=== PATIENT | male | born 1990 | race Caucasian/White ===

== ENCOUNTER 2018-01-21 03:34 | Emergency (ER) | payer OTHER ==
[2018-01-21 03:35] VITALS: BMI 24.3
[2018-01-21 03:47] VITALS: RESP 20
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
[2018-01-21] MEDS ORDERED: Tetanus/Diphtheria Toxoids 0.5 ml Syringe IM ONE ×2 (04:18→04:53)
[2018-01-21 06:22] VITALS: BP 130/80; PULSE 82; TEMP 98; O2SAT 97
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
== END 2018-01-21 06:20 | disposition home or self-care (01) ==
LOC: C.ER 03:34
DX: S80.212A Abrasion, left knee, initial encounter (principal); S80.211A Abrasion, right knee, initial encounter; S60.416A Abrasion of right little finger, initial encounter; V18.0XXA Pedal cycle driver injured in noncollision transport accident in nontraffic accident, initial encounter; Y93.55 Activity, bike riding

== ENCOUNTER 2018-04-11 00:03 | Emergency (ER) | payer OTHER ==
[2018-04-11 00:04] VITALS: BMI 24.3
[2018-04-11 00:25] VITALS: BP 124/76; PULSE 90; TEMP 98; O2SAT 95
[2018-04-11] MEDS ORDERED: Albuterol 0.083% Inhal Sol (2.5 mg/3 mL) UD ONE (00:47)
[2018-04-11] MEDS: Albuterol 0.083% Inhal Sol (2.5 mg/3 mL) UD INH SCH (00:49)
--- NOTE | 2018-04-11 00:53 | C.PDOC ---
History Of Present Illness 27 year old male presents to the ED c/o cold like symptoms and cough for the past few days. Patient has PMHx of asthma and has not been using his inhaler. Patient denies fever, chills, nausea, vomit, rash, CP, SOB, recent travel, sick contacts. Time Seen by Provider: 04/11/18 00:30 Chief Complaint (Nursing): Cough, Cold, Congestion History Per: Patient History/Exam Limitations: no limitations Onset/Duration Of Symptoms: Days Current Symptoms Are (Timing): Still Present Location Of Pain: Sinus/es Sick Contacts (Context): None Associated Symptoms: Cough, Sinus Drainage, Nasal Congestion Ear Symptoms: Bilateral: None Recent travel outside of the [place]: No Additional History Per: Patient Past Medical History Reviewed: Historical Data, Nursing Documentation, Vital Signs Vital Signs: Last Vital Signs Temp 98.0 F 04/11/18 00:22 Pulse 90 04/11/18 00:22 Resp 18 04/11/18 00:22 BP 124/76 04/11/18 00:22 Pulse Ox 95 04/11/18 00:22 - Medical History PMH: No Chronic Diseases Denies: Chronic Kidney Disease Surgical History: No Surg Hx - [facility] Procedures COLLECTION OF CSF FROM INDWELL DEV IN NERVOUS SYS (09/20/15) DRAINAGE OF CEREBRAL VENTRICLE WITH DRAIN DEV, PERC APPROACH (09/20/15) EXTIRPATION OF MATTER FROM RIGHT MAIN BRONCHUS, ENDO (09/20/15) INJECT/INFUSE NEC (03/05/15) INSERTION OF ENDOTRACHEAL AIRWAY INTO TRACHEA, VIA OPENING (09/20/15) RESPIRATORY VENTILATION, 24-96 CONSECUTIVE HOURS (09/20/15) Family History: States: Unknown Family Hx - Social History Hx Tobacco Use: Yes Hx Alcohol Use: No Hx Substance Use: Yes - Immunization History Hx Tetanus Toxoid Vaccination: No Hx Influenza Vaccination: Yes Hx Pneumococcal Vaccination: No Review Of Systems Constitutional: Negative for: Fever, Chills ENT: Positive for: Nose Congestion. Negative for: Throat Pain, Throat Swelling Cardiovascular: Negative for: Chest Pain Respiratory: Positive for: Cough. Negative for: Shortness of Breath, Sputum Gastrointestinal: Negative for: Nausea, Vomiting Skin: Negative for: Rash Neurological: Negative for: Weakness, Numbness Physical Exam - Physical Exam Appears: Non-toxic, No Acute Distress Skin: Normal Color, Warm, Dry Head: Atraumatic, Normacephalic Eye(s): bilateral: Normal Inspection Throat: Normal Chest: Symmetrical Cardiovascular: Rhythm Regular Respiratory: Normal Breath Sounds, No Rales, Rhonchi, Wheezing Extremity: Normal ROM, No Tenderness, No Swelling Neurological/Psych: Oriented x3, Normal Speech Gait: Steady ED Course And Treatment O2 Sat by Pulse Oximetry: 95 (ON RA) Pulse Ox Interpretation: Normal Progress Note: Plan: - Albuterol Nebulizer x 2. - Prednisone 60 mg PO. On reassessment, patient is resting comfortably with no wheezing, chest pain, or retractions. Oxygen saturation and breath sounds have improved. Patient is alert and oriented x 3. Patient was advised to follow up with physician/clinic in 1-2 days and return to ED if symptoms worsen or persist. Disposition Counseled Patient/Family Regarding: Diagnosis, Need For Followup - Disposition Referrals: [facility] at [facility] [Outside] Disposition: HOME/ ROUTINE Disposition Time: 00:52 Condition: STABLE Additional Instructions: Please follow up in clinic Take medications prescribed Drink plenty of fluids Return to ER if worse Prescriptions: Albuterol HFA [Ventolin HFA 90 mcg/actuation (8 g)] 2 puff IH [id number] #1 inhaler guaiFENesin/Dextromethorphan [Robitussin DM] 5 ml PO QID #100 ml predniSONE [Prednisone] 40 mg PO DAILY #8 tab Instructions: Upper Respiratory Infection (ED) Forms: [employer] (Maori) - Clinical Impression Clinical Impression: Upper respiratory infection, Asthma - PA / LADLE LINER / Resident Statement MD/DO has reviewed & agrees with the documentation as recorded. - Scribe Statement The provider has reviewed the documentation as recorded by the Scribe Ga Gutierrez All medical record entries made by the Scribe were at my direction and personally dictated by me. I have reviewed the chart and agree that the record accurately reflects my personal performance of the history, physical exam, medical decision making, and the department course for this patient. I have also personally directed, reviewed, and agree with the discharge instructions and disposition.
[2018-04-11 01:09] VITALS: RESP 20
== END 2018-04-11 01:05 | disposition home or self-care (01) ==
LOC: C.ER 00:03
DX: J45.909 Unspecified asthma, uncomplicated (principal); J06.9 Acute upper respiratory infection, unspecified; F17.210 Nicotine dependence, cigarettes, uncomplicated

== ENCOUNTER 2018-08-03 12:05 | Emergency (ER) | payer OTHER ==
[2018-08-03 12:05] VITALS: BMI 24.3
[2018-08-03 12:10] VITALS: TEMP 98.8
--- NOTE | 2018-08-03 12:15 | C.PDOC ---
History Of Present Illness 27 year old male presents to the ED with complaint of new-onset headache since 10:00am, gradually worsening. Headache is constant. He denies prior hx of frequent headaches. PMHx is significant for brain aneurysm s/p cerebral shunt pl acement in [facility] in 2009. Patient is also complaining of blurry vision when he looks straight. Of note, patient reports chronic strabismus s/p prior stroke in 2009, and also chronic decreased ability to write using his right hand. He denies any new change in speech, facial droop, or other new focal deficit. Records reviewed: Patient has hx of noncompliance with neurosurgery. He is also s/p SET UP OPERATOR TOOL shunt revision in 2016. + Hx of prior drug abuse. Time Seen by Provider: 08/03/18 12:12 Chief Complaint (Nursing): Headache History Per: Patient History/Exam Limitations: no limitations Onset/Duration Of Symptoms: Hrs (x2) Current Symptoms Are (Timing): Still Present Preceeding Symptoms: None Associated Symptoms: Blurred Vision Past Medical History Reviewed: Historical Data, Nursing Documentation, Vital Signs Vital Signs: Last Vital Signs Temp 98.8 F 08/03/18 12:06 Pulse 70 08/03/18 12:06 Resp 18 08/03/18 12:06 BP 155/81 H 08/03/18 12:06 Pulse Ox 98 08/03/18 12:06 - Medical History PMH: CVA, Seizures Denies: Diabetes, Hepatitis, HIV, HTN, Chronic Kidney Disease, Sexually Transmitted Disease Other PMH: brain aneurysm s/p shunt placement in 2009 Other Surgeries: SET UP OPERATOR TOOL shunt revision in 2016 - [facility] Procedures COLLECTION OF CSF FROM INDWELL DEV IN NERVOUS SYS (09/20/15) DRAINAGE OF CEREBRAL VENTRICLE WITH DRAIN DEV, PERC APPROACH (09/20/15) EXTIRPATION OF MATTER FROM RIGHT MAIN BRONCHUS, ENDO (09/20/15) INJECT/INFUSE NEC (03/05/15) INSERTION OF ENDOTRACHEAL AIRWAY INTO TRACHEA, VIA OPENING (09/20/15) RESPIRATORY VENTILATION, 24-96 CONSECUTIVE HOURS (09/20/15) Family History: States: Unknown Family Hx - Social History Hx Tobacco Use: Yes Hx Alcohol Use: No Hx Substance Use: Yes - Immunization History Hx Tetanus Toxoid Vaccination: No Hx Influenza Vaccination: Yes Hx Pneumococcal Vaccination: No Review Of Systems Constitutional: Negative for: Fever, Chills Eyes: Positive for: Vision Change (blurred vision when looking straight) Cardiovascular: Negative for: Chest Pain, Palpitations Respiratory: Negative for: Shortness of Breath Gastrointestinal: Negative for: Nausea, Vomiting, Diarrhea Skin: Negative for: Rash Neurological: Positive for: Weakness (decreased ability to write with right hand -- chronic), Headache. Negative for: Change in Speech, Confusion, Altered Mental Status Physical Exam - Physical Exam Appears: Non-toxic, No Acute Distress Skin: Warm, Dry, No Rash Head: Atraumatic, Normacephalic (w/ palpable shunt noted) Eye(s): right: Other (Right eye exotropia) Neck: Supple Chest: Symmetrical Cardiovascular: Rhythm Regular, No Murmur Respiratory: Normal Breath Sounds, No Accessory Muscle Use, Other (NARD) Gastrointestinal/Abdominal: Soft, No Tenderness, No Distention Extremity: Bilateral: Atraumatic, Normal Color And Temperature, Normal ROM (moves all extremities) Pulses: Left Radial: Normal, Right Radial: Normal Neurological/Psych: Oriented x3, Normal Speech, Other (see NIH scale) Other Neurological Findings: No Facial Palsy Extremity: Right: No Drift, Left: No Drift, Upper: No Drift, Lower: No Drift ED Course And Treatment - Laboratory Results Result Diagrams: 08/03/18 12:19 08/03/18 12:19 ECG: Interpreted By Nd ECG Rhythm: Sinus Rhythm ECG Interpretation: Normal Rate From EC O2 Sat by Pulse Oximetry: 98 (RA) Pulse Ox Interpretation: Normal - Radiology CXR: Interpreted by Nd CXR Interpretation: Yes: No Acute Disease - CT Scan/US CT Head Other Rad Studies (CT/US): Read By Radiologist, Radiology Report Reviewed CT/US Interpretation: Accession No. : [id number]. Patient Name / ID : RYLEE COTTER / [id number]. Exam Date : 08/03/2018 12:21:24 ( Approved ). Study Comment : Sex / Age : M / 27Y. Creator : Lorna Cunningham. Dictator : Rony Warner MD. Solo Musician : Associate Field Service Engineer : Rony Warner MD. Approver2 : Report Date : 08/03/2018 12:24:39. My Comment : . Date of service: 08/03/2018. PROCEDURE: CT HEAD WITHOUT CONTRAST. HISTORY: Code Stroke. COMPARISON: Noncontrast head CT 09/23/2015. TECHNIQUE: Axial computed tomography images were obtained through the head/brain without intravenous con trast. Radiation dose: Total exam DLP = 1169.2 mGy-cm. This CT exam was performed using one or more of the following dose reduction techniques: Automated exposure control, adjustment of the mA and/or kV according to patient size, and/or use of iterative reconstruction technique. FINDINGS: HEMORRHAGE: No acute subacute intracranial hemorrhage. Prior right frontal and bilateral lateral ventricle intraventricular hemorrhage has resolved in the interval. BRAIN: Dense artifact from prior coil placement as therapy for large arteriovascular malformation is reiterated obscuring the mid to lower cerebrum once again. Hyperdensity identifies significant residual arteriovascular malformation within and cephalad to the vermis, within or posterior to the mid and upper brainstem and with left frontal cortical venous drainage which may have increased in the interval. Additional drainage is apparently through left greater than right cavernous sinuses which are more prominent now than previou sly shown. Primary drainage may be via vein of Jarred and straight sinus, both of which appear engorged. Posterior portion of the AVM appears more prominent at the basilar cisterns, posterior segment of the upper mid brainstem and vermis. VENTRICLES: Prior right frontal ventricular shunt has been removed with left ventricular shunt again identified terminating likely in the body of the left lateral ventricle once again though there is a very low ventricular volume in either lateral ventricle in the interval. No hydrocephalus is appreciated at this time. CALVARIUM: Bifrontal raysa holes are reiterated. PARANASAL SINUSES: Unremarkable as visualized. No significant inflammatory changes. MASTOID AIR CELLS: Unremarkable as visualized. No inflammatory changes. OTHER FINDINGS: None. IMPRESSION: 1. No definitive cortical edema or or other definite acute intracranial finding noted at this time. Artifact from arteriovascular malformation coils obscures evaluation of mid cerebrum and upper brainstem and limited portion of the inferior cerebrum as well. 2. 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 The vein of Jarred and straight sinus are engorged potentially reflecting primary venous drainage of this AVM with increased density at the region of the vermis suggesting increase in volume of the posterior portion of the AVM. Findings discussed with JAY Glaser with written down and read back verification 08/03/2018 12:35 p.m. CTA Head/Neck Other Rad Studies (CT/US): Read By Radiologist, Radiology Report Reviewed CT/US Interpretation: Accession No. : [id number]. Patient Name / ID : RYLEE COTTER / [id number]. Exam Date : 08/03/2018 12:24:42 ( Approved ). Study Comment : Sex / Age : M / 27Y. Creator : Lorna Cunningham. Dictator : Rony Warner MD. Solo Musician : Associate Field Service Engineer : Rony Warner MD. Approver2 : Report Date : 08/03/2018 12:39:48. My Comment : . Date of service: 08/03/2018. PROCEDURE: CT Angiography of the Brain. HISTORY: code stroke. COMPARISON: None available. TECHNIQUE: CT angiography of the head and neck was performed following intravenous contrast administration. Coronal and sagittal maximum intensity projection reformatted images were generated. Contrast Dose: Omnipaque 350, 100 cc. Radiation dose: Total exam DLP = 702.75 mGy-cm. This CT exam was performed using one or more of the following dose reduction techniques: Automated exposure control, adjustment of the mA and/or kV according to patient size, and/or use of iterative r econstruction technique. FINDINGS: The intracranial portion of the examination is complicated by a very large arteriovascular malformation at the vermis and posterior brainstem with primary venous drainage appearing to be via the vein of Jarred and straight sinus but also via left greater than right cavernous sinuses and left temporal cortical venous drainage. Some cortical venous drainage is ap preciate the right temporal lobe periphery as well. Artifact from prior AVM coiling is appreciated at the anterior superior margins of the AVM. INTERNAL CEREBRAL ARTERIES: Unremarkable. The skull base, petrous, cavernous and supraclinoid segments are bilaterally widely patent. ANTERIOR CEREBRAL ARTERIES: Unremarkable. A1 and A2 segments are widely patent. Smaller distal branches unremarkable, as visualized. MIDDLE CEREBRAL ARTERIES: Unremarkable. M1 and M2 segments are widely patent. Perisylvian branches grossly symmetric. POSTERIOR CIRCULATION: The basilar and bilateral vertebral arteries are widely patent and appear relatively prominent which may indicate potential primary source of input for AVM. There caliber is larger than the A1 anterior and M1 middle cerebral artery branches bilaterally. The bilateral P1 posterior arteries appear widely patent and upper limits normal volume as well. Posterior Inferior Cerebellar Arteries: Unremarkable. Right posterior communicating artery appears quite prominent with hypoplastic left posterior communicating artery evident. A 3.0 x 3.5 mm aneurysm is questioned extending medial and posterior off the right PCOM artery. Normal appearing anterior communicating artery. NECK CTA: Common Carotid arteries: The bilateral common carotid appear widely patent from their origins to their bifurcations with no significant stenosis appreciated. No evidence to suggest common carotid artery dissection. Internal Carotid arteries: No significant stenosis is appreciated throughout the cervical internal carotid artery segments bilaterally and there is no evidence of dissection either. External Carotid arteries: Appear unremarkable ricardo aterally. Vertebral arteries: The bilateral vertebral arteries are patent with left greater than right vertebral artery prominence noted, though not grossly large in size. No CT evidence to suggest dissection bilaterally. ANEURYSM/ VASCULAR MALFORMATIONS: Please see discussion above. Both of these types of vascular abnormalities are described above. OTHER FINDINGS: None. IMPRESSION: 1. 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 AVM is more prominent in the interval with prominent vein of Jarred/straight sinus venous drainage and left frontal cortical venous drainage. Limited right temporal cortical venous drainage identified. 2. 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 3. No definite occlusion or even significant stenosis identified within main intracranial arteries, however, bilateral vertebral arteries appears relatively prominent as well as right posterior communicating artery, likely related to arteriovascular malformation. 4. Widely patent bilateral common and internal carotid arteries at the neck and skull base. NIHSS Stroke Scale - Date/Time Evaluation Performed Date Performed: 08/03/18 Time Performed: 12:14 When Was NIHSS Performed: Baseline - How Severe is the Stoke Level of Consciousness: 0=Alert LOC to Questions: 0=Both comments correct LOC to commands: 0=Obeys both correctly Best Gaze: 2=Forced deviation (CHRONIC) Visual: 0=No visual loss Facial: 0=Normal Motor Arm - Left: 0=No drift Motor Arm - Right: 0=No drift Motor Leg - Left: 0=No drift Motor Leg - Right: 0=No drift Limb Ataxia: 0=Absent Sensory: 0=Normal Best Language: 0=No aphasia Dysarthia: 0=Normal articulation Extinction & Inattention (Neglect): 0=Normal, no object Score: 2 Progress - Re-Evaluation Re-evaluation Note: 08/03/18 13:10 ADMINISTERED IV REGLAN, TORADOL, MAG SULFATE FOR PAIN CONTROL 08/03/18 13:41 D/W DR COBB NEURO SHELTER CASE MANAGER AWARE OF ER FINDINGS. RECOMMENDS ADDL DEPAKOTE, DEX AND FU NEUROSURG @ [facility]. - Data Reviewed Data Reviewed: Lab, Diagnostic imaging, EKG, Old records rTPA Inclusion/Exclusion - Inclusion Criteria for Altepase Patient is 18 years or Older: Yes The Clinical Diagnosis of Ischemic Stroke That is Causing a Potentially Disabling Neurological Deficit: Yes Time of Onset is Well Established to be Less Than 270 Minute Before Treatment Would Begin: Yes Risk/Benefit Discussed With Patient/Family Member Present: Yes - Exclusion Criteria for Altepase Uncontrolled Hypertension at Time of Treatment (Systolic BP above 185 or Diastolic BP above 110 mmHg): Yes History of: Intracranial hemorrhage, Brain Aneurysm Active Internal Bleeding: No Known Bleeding Diathesis Including but Not Limited to: Platelets Below 100,000/mm,PTT Above 40 sec After Heparin Use, Current Use of Oral Anitcoagulant With INR Greater Than 1.7 or PT Greater Than 15 secs: No Evidence of an Intracranial Hemorrhage: No Evidence of Major Acute Infarct With Signs Greater Than 1/3 MCA Territory: No Suspicion of Subarachnoid Hemorrhage on Pretreatment Evaluation Even if CT Head Negative For Hemorrhage: No - Warning to TPA With Conditions Following Conditions Weighed Against Anticipated Benefit: Yes Condition: Stroke Serevity Too Mild Medical Decision Making Medical Decision Making: Code Stroke initiated at 12:14. Initial Plan: --CMP, CBC, drug screen, cardiac enzymes, coags --EKG --Chest x-ray --CT Head --CTA Head/Neck 12:35 Received call from radiologist Dr. Maher, no acute findings on CT. Still pending CTA. 13:30 CTA read, shows no definite occlusion. Disposition Counseled Patient/Family Regarding: Studies Performed, Diagnosis, Need For Followup - Disposition Referrals: YOUR,NEUROSURGEON [Other] Disposition: HOME/ ROUTINE Disposition Time: 14:14 Condition: IMPROVED Instructions: Headache, Adult (DC) Forms: [employer] (Urdu) - Clinical Impression Clinical Impression: Headache - Scribe Statement The provider has reviewed the documentation as recorded by the Reynaldo Mahmood Provider Attestation: All medical record entries made by the Reynaldo were at my direction and personally dictated by me. I have reviewed the chart and agree that the record accurately reflects my personal performance of the history, physical exam, medical decision making, and the department course for this patient. I have also personally directed, reviewed, and agree with the discharge instructions and disposition.
[2018-08-03] MEDS ORDERED: Iohexol 350mg/ml 100 ML ONE (12:18)
[2018-08-03 12:26] LABS: BASO # 0.1 K/uL (0.0-0.2); BASO % 1.2 % (0.0-2.0); EOS # 0.1 K/uL (0.0-0.7); EOS % 1.7 % (0.0-4.0); LYMPH # 1.5 K/uL (1.0-4.3); LYMPH % 31.6 % (20.0-40.0); MEAN CORPUSCULAR HGB CONC 33.4 g/dL (33.0-37.0); MEAN PLATELET VOLUME 8.3 fL (7.2-11.7); MONO # 0.4 K/uL (0.0-0.8); NEUT # 2.6 K/uL (1.8-7.0); NEUT % 56.5 % (50.0-75.0); NRBC % 0.1 % (0.0-2.0); RBC 5.66 Mil/uL (4.40-5.90); RED CELL DISTRIBUTION WIDTH 13.8 % (11.5-14.5)
[2018-08-03 12:27] LABS: HEMOGLOBIN 15.8 g/dL (12.0-18.0); MEAN CELL VOLUME 83.9 fL (80.0-94.0); WHITE BLOOD COUNT 4.6 K/uL (4.8-10.8)
[2018-08-03 12:34] LABS: INR 1.2; PROTHROMBIN TIME 12.9 SECONDS (9.7-12.2)
[2018-08-03 12:40] LABS: ALB/GLOB RATIO 1.7 (1.0-2.1); ALBUMIN 4.7 g/dL (3.5-5.0); ALT/SGPT 26 U/L (21-72); AST/SGOT 25 U/L (17-59); BLOOD UREA NITROGEN 23 mg/dL (9-20); CALCIUM 9.3 mg/dl (8.6-10.4); GFR NON-AFRICAN AMERICAN > 60; HDL CHOLESTEROL 39 mg/dL (30-70)
[2018-08-03 12:50] LABS: LDL CHOLESTEROL 63 mg/dL (0-129)
--- NOTE | 2018-08-03 12:53 | CT ---
Date of service: 08/03/2018 PROCEDURE: CT HEAD WITHOUT CONTRAST. HISTORY: Code Stroke COMPARISON: Noncontrast head CT 09/23/2015. TECHNIQUE: Axial computed tomography images were obtained through the head/brain without intravenous contrast. Radiation dose: Total exam DLP = 1169.2 mGy-cm. This CT exam was performed using one or more of the following dose reduction techniques: Automated exposure control, adjustment of the mA and/or kV according to patient size, and/or use of iterative reconstruction technique. FINDINGS: HEMORRHAGE: No acute subacute intracranial hemorrhage. Prior right frontal and bilateral lateral ventricle intraventricular hemorrhage has resolved in the interval. BRAIN: Dense artifact from prior coil placement as therapy for large arteriovascular malformation is reiterated obscuring the mid to lower cerebrum once again. Hyperdensity identifies significant residual arteriovascular malformation within and cephalad to the vermis, within or posterior to the mid and upper brainstem and with left frontal cortical venous drainage which may have increased in the interval. Additional drainage is apparently through left greater than right cavernous sinuses which are more prominent now than previously shown. Primary drainage may be via vein of Jarred and straight sinus, both of which appear engorged. Posterior portion of the AVM appears more prominent at the basilar cisterns, posterior segment of the upper mid brainstem and vermis. VENTRICLES: Prior right frontal ventricular shunt has been removed with left ventricular shunt again identified terminating likely in the body of the left lateral ventricle once again though there is a very low ventricular volume in either lateral ventricle in the interval. No hydrocephalus is appreciated at this time. CALVARIUM: Bifrontal raysa holes are reiterated. PARANASAL SINUSES: Unremarkable as visualized. No significant inflammatory changes. MASTOID AIR CELLS: Unremarkable as visualized. No inflammatory changes. OTHER FINDINGS: None. IMPRESSION: 1. No definitive cortical edema or or other definite acute intracranial finding noted at this time. Artifact from arteriovascular malformation coils obscures evaluation of mid cerebrum and upper brainstem and limited portion of the inferior cerebrum as well. 2. 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 The vein of Jarred and straight sinus are engorged potentially reflecting primary venous drainage of this AVM with increased density at the region of the vermis suggesting increase in volume of the posterior portion of the AVM. Findings discussed with PA Rusko with written down and read back verification 08/03/2018 12:35 p.m..
[2018-08-03] MEDS ORDERED: Magnesium Sulfate 1 gm in D5W 1 GM/100 ML BAG IVPB STA (13:09)
--- NOTE | 2018-08-03 13:26 | CT ---
Date of service: 08/03/2018 PROCEDURE: CT Angiography of the Brain. HISTORY: code stroke COMPARISON: None available. TECHNIQUE: CT angiography of the head and neck was performed following intravenous contrast administration. Coronal and sagittal maximum intensity projection reformatted images were generated. Contrast Dose: Omnipaque 350, 100 cc Radiation dose: Total exam DLP = 702.75 mGy-cm. This CT exam was performed using one or more of the following dose reduction techniques: Automated exposure control, adjustment of the mA and/or kV according to patient size, and/or use of iterative reconstruction technique. FINDINGS: The intracranial portion of the examination is complicated by a very large arteriovascular malformation at the vermis and posterior brainstem with primary venous drainage appearing to be via the vein of Jarred and straight sinus but also via left greater than right cavernous sinuses and left temporal cortical venous drainage. Some cortical venous drainage is appreciate the right temporal lobe periphery as well. Artifact from prior AVM coiling is appreciated at the anterior superior margins of the AVM. INTERNAL CEREBRAL ARTERIES: Unremarkable. The skull base, petrous, cavernous and supraclinoid segments are bilaterally widely patent. ANTERIOR CEREBRAL ARTERIES: Unremarkable. A1 and A2 segments are widely patent. Smaller distal branches unremarkable, as visualized. MIDDLE CEREBRAL ARTERIES: Unremarkable. M1 and M2 segments are widely patent. Perisylvian branches grossly symmetric. POSTERIOR CIRCULATION: The basilar and bilateral vertebral arteries are widely patent and appear relatively prominent which may indicate potential primary source of input for AVM. There caliber is larger than the A1 anterior and M1 middle cerebral artery branches bilaterally. The bilateral P1 posterior arteries appear widely patent and upper limits normal volume as well. Posterior Inferior Cerebellar Arteries: Unremarkable. Right posterior communicating artery appears quite prominent with hypoplastic left posterior communicating artery evident. A 3.0 x 3.5 mm aneurysm is questioned extending medial and posterior off the right PCOM artery. Normal appearing anterior communicating artery. NECK CTA: Common Carotid arteries: The bilateral common carotid appear widely patent from their origins to their bifurcations with no significant stenosis appreciated. No evidence to suggest common carotid artery dissection. Internal Carotid arteries: No significant stenosis is appreciated throughout the cervical internal carotid artery segments bilaterally and there is no evidence of dissection either. External Carotid arteries: Appear unremarkable bilaterally. Vertebral arteries: The bilateral vertebral arteries are patent with left greater than right vertebral artery prominence noted, though not grossly large in size. No CT evidence to suggest dissection bilaterally. ANEURYSM/ VASCULAR MALFORMATIONS: Please see discussion above. Both of these types of vascular abnormalities are described above. OTHER FINDINGS: None. IMPRESSION: 1. 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 AVM is more prominent in the interval with prominent vein of Jarred/straight sinus venous drainage and left frontal cortical venous drainage. Limited right temporal cortical venous drainage identified. 2. 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 3. No definite occlusion or even significant stenosis identified within main intracranial arteries, however, bilateral vertebral arteries appears relatively prominent as well as right posterior communicating artery, likely related to arteriovascular malformation. 4. Widely patent bilateral common and internal carotid arteries at the neck and skull base.
[2018-08-03] MEDS ORDERED: Dexamethasone 4 mg/1 ml IVP STA (13:40)
[2018-08-03] MEDS ORDERED: Magnesium Sulfate 1 gm in D5W 1 GM/100 ML BAG IVPB ONE (13:44)
--- NOTE | 2018-08-03 13:54 | RAD ---
Date of service: 08/03/2018 HISTORY: Code Stroke COMPARISON: 09/24/2015 FINDINGS: LUNGS: No active pulmonary disease. PLEURA: No significant pleural effusion identified, no pneumothorax apparent. CARDIOVASCULAR: No aortic atherosclerotic calcification present. Normal cardiac size. No congestive change. Suspect ventriculoperitoneal shunt catheter traversing the left hemithorax. ET tube and NG tube seen on prior examination are no longer present. OSSEOUS STRUCTURES: No significant abnormalities. VISUALIZED UPPER ABDOMEN: Normal. OTHER FINDINGS: None. IMPRESSION: No active disease.
[2018-08-03] MEDS ORDERED: Dexamethasone 4 mg/1 ml ONE (14:39)
--- NOTE | 2018-08-03 15:02 | CP.PCM.CON ---
History of Present Illness - History of Present Illness History of Present Illness: PGY-1 Neurology Code Stroke Consult for Dr. Nieto Patient is a 27 year old male with PMHx of AVM and hydrocephalus s/p [employer] shunt placement in 2009 with emergency revision in 2014 who presented to ED complaining of new left-sided headache. Patient has a variety of neurological symptoms which are residual sequelae of his neurovascular history, including reported right-sided weakness and blurry vision (patient has strabismus). The only new complaint that patient comes in with today is left-frontal headache in the area of where the [employer] shunt is placed. Patient reports he had not followed up with his Neurosurgeon, Dr. Swartz, in four years (initial [employer] placed by Dr. Swartz, revision was with Dr. Benavidez). He denies any recent international travel, sick contacts, any history of hypercoagulability. PMHx: AVM and hydrocephalus s/p [employer] shunt placement in 2009 with emergency revision in 2014 [place]iges: NKA Surgeries: SU[employer] shunt placement in 2009, emergency revision in 2014 (requiring ventriculostomy, now reversed) Social history: Occasional alcohol, denies tobacco use, admits to frequent use of marijuana Medications: No home meds Review of Systems - Constitutional Constitutional: absent: Fatigue, Fever - EENT Eyes: Blurred Vision. absent: Change in Vision Additional comments: Blurry vision but not double vision - Cardiovascular Cardiovascular: absent: Chest Pain, Dyspnea - Respiratory Respiratory: absent: Wheezing, Stridor - Gastrointestinal Gastrointestinal: absent: Abdominal Pain, Constipation, Diarrhea, Nausea, Vomiting - Genitourinary Genitourinary: absent: Dysuria, Flank Pain - Neurological Neurological: Abnormal Speech (slurred speech (residual from prior events)), Num bness (left-sided numbness (residual from prior events)), Focal Weakness (Reports right-sided weakness (residual from prior events)), Headaches (New left-frontal headache - was 9/10 --> 6/10), Sensory Deficit (reports decreased sensation on left side (residual from prior events)), Weakness (Reports right- sided weakness (residual from prior events)). absent: Abnormal Hearing, Behavioral Changes, Convulsions, Dizziness, Loss of Vision, Memory Loss, Paresthesias, Radicular Pain, Syncope - Psychiatric Psychiatric: absent: Anxiety, Depression (does report distress over multiple surgeries and sequelae) - Hematologic/Lymphatic Hematologic: absent: Easy Bleeding, Easy Bruising Past Patient History - Infectious Disease Hx of Infectious Diseases: None - Tetanus Immunizations Tetanus Immunization: Unknown - Past Medical History & Family History Past Medical History?: Yes - Past Social History Smoking Status: Light Smoker < 10 Cigarettes Daily - CARDIAC Hx Hypertension: No - PULMONARY Hx Tuberculosis: No - NEUROLOGICAL Hx Seizures: Yes - HEENT Hx HEENT Problems: No - RENAL Hx Chronic Kidney Disease: No - ENDOCRINE/METABOLIC Hx Endocrine Disorders: No - HEMATOLOGICAL/ONCOLOGICAL Hx Human Immunodeficiency Virus (HIV): No - INTEGUMENTARY Hx Dermatological Problems: No - MUSCULOSKELETAL/RHEUMATOLOGICAL Hx Musculoskeletal Disorders: No - GASTROINTESTINAL Hx Gastrointestinal Disorders: No - GENITOURINARY/GYNECOLOGICAL Hx Sexually Transmitted Disorders: No - PSYCHIATRIC Hx Substance Use: Yes - SURGICAL HISTORY Hx Surgeries: Yes ([employer] Shunt) Other/Comment: Shunt. Brain annurysm - ANESTHESIA Hx Anesthesia: Yes Hx Anesthesia Reactions: No Meds Allergies/Adverse Reactions: Allergies Allergy/AdvReac Type Severity Reaction Status Date / Time No Known Allergies Allergy Verified 04/11/18 00:25 Physical Exam - Constitutional Appears: Non-toxic, No Acute Distress - Head Exam Head Exam: ATRAUMATIC, NORMOCEPHALIC - Eye Exam Eye Exam: EOMI, PERRL - ENT Exam ENT Exam: Mucous Membranes Moist - Respiratory Exam Respiratory Exam: Clear to Auscultation Bilateral. absent: Rhonchi, Wheezes - Cardiovascular Exam Cardiovascular Exam: REGULAR RHYTHM, +S1, +S2 Additional comments: Protruding clavicles 2/2 prior trauma - GI/Abdominal Exam GI & Abdominal Exam: Normal Bowel Sounds, Soft. absent: Tenderness - Extremities Exam Extremities exam: Negative for: pedal edema, tenderness - Neurological Exam Neurological exam: Alert, CN II-XII Intact, Oriented x3 - Expanded Neurological Exam Expanded Speech: Garbled Speech Cranial nerves: EOM's Intact: Normal, Facial Palsey w/Forehead Movement: Normal, Facial Palsey w/o Forehead Movement: Normal, Facial Sensation: Normal, Gag Reflex: Normal, Nystagmus: Normal, Tongue Deviation: Normal Cerebellar Function: Finger to Nose: Abnormal Left, Abnormal Right Upper motor neuron: Babinski Sign: Normal, Pronator Drift: Normal Sensory exam: Lower Extremity Light Touch: Abnormal Left, Upper Extremity Light Touch: Abnormal Left Neuro motor strength exam: Left Upper Extremity: 5, Right Upper Extremity: 5 (exam inconsistent w/ ROS - patient claims r-side weakness), Left Lower Extremity: 5, Right Lower Extremity: 5 DTR: Bicep Left: 2+, Bicep Right: 2+, Brachioradialis Left: 3+, Brachioradialis Right: 2+, Patellar Left: 3+, Patellar Right: 2+ - Psychiatric Exam Psychiatric exam: Normal Affect, Normal Mood - Skin Skin Exam: Dry, Intact Results - Vital Signs Recent Vital Signs: Last Vital Signs Temp 98.8 F 08/03/18 12:06 Pulse 70 08/03/18 12:06 Resp 18 08/03/18 12:06 BP 155/81 H 08/03/18 12:06 Pulse Ox 98 08/03/18 14:14 - Labs Result Diagrams: 08/03/18 12:19 08/03/18 12:19 Labs: Laboratory Results - last 24 hr 08/03/18 08/03/18 08/03/18 12:09 12:19 12:19 WBC 4.6 L D RBC 5.66 Hgb 15.8 D Hct 47.5 MCV 83.9 D MCH 28.0 MCHC 33.4 RDW 13.8 Plt Count 248 MPV 8.3 Neut % (Auto) 56.5 Lymph % (Auto) 31.6 [place] % (Auto) 9.0 Eos % (Auto) 1.7 Baso % (Auto) 1.2 Neut # (Auto) 2.6 Lymph # (Auto) 1.5 [place] # (Auto) 0.4 Eos # (Auto) 0.1 Baso # (Auto) 0.1 PT 12.9 H INR 1.2 APTT 32 Sodium Potassium Chloride Carbon Dioxide Anion Gap BUN Creatinine Est GFR ( Amer) Est GFR (Non-Af Amer) POC Glucose (mg/dL) 120 H Random Glucose Hemoglobin A1c Calcium Total Bilirubin AST ALT Alkaline Phosphatase Troponin I Total Protein Albumin Globulin Albumin/Globulin Ratio Triglycerides Cholesterol LDL Cholesterol Direct HDL Cholesterol Alcohol, Quantitative Blood Type Antibody Screen 08/03/18 08/03/18 08/03/18 12:19 12:19 12:19 WBC RBC Hgb Hct MCV MCH MCHC RDW Plt Count MPV Neut % (Auto) Lymph % (Auto) [place] % (Auto) Eos % (Auto) Baso % (Auto) Neut # (Auto) Lymph # (Auto) [place] # (Auto) Eos # (Auto) Baso # (Auto) PT INR APTT Sodium 139 Potassium 3.8 Chloride 105 Carbon Dioxide 27 Anion Gap 11 BUN 23 H Creatinine 0.9 Est GFR ( Amer) > 60 Est GFR (Non-Af Amer) > 60 POC Glucose (mg/dL) Random Glucose 100 Hemoglobin A1c 5.2 Calcium 9.3 Total Bilirubin 0.9 AST 25 ALT 26 Alkaline Phosphatase 63 Troponin I < 0.0120 Total Protein 7.4 Albumin 4.7 Globulin 2.7 Albumin/Globulin Ratio 1.7 Triglycerides 100 Cholesterol 107 LDL Cholesterol Direct 63 HDL Cholesterol 39 Alcohol, Quantitative < 10 Blood Type A POSITIVE Antibody Screen Negative Assessment & Plan - Assessment and Plan (Free Text) Assessment: PMHx of AVM and hydrocephalus s/p [employer] shunt placement in 2009 with emergency revision in 2014 who presented to ED complaining of new left-sided headache and CT head showing interval increase in size of AVM Plan: Known AVM with new-onset headache likely 2/2 AVM growth Meds -Decadron 8 mg IV stat given in ED -Mag sulf 1 gm IV stat given in ED -Depakote 500 mg IVPB stat given in ED -Toradol also given stat in ED -No acute intervention required at this time, however patient needs to follow up with interventional neurosurgery due to increasing size of AVM with lack of prior follow up (no follow up in 4 years), either with Dr. Swartz, or with [facility]. Patient was instructed to do so, and is safe for discharge home from a neurology standpoint. Imaging -CT head without constrast (code stroke) 08/03: 1. No definitive cortical edema or or other definite acute intracranial finding noted at this time. Artifact from arteriovascular malformation coils obscures evaluation of mid cerebrum and upper brainstem and limited portion of the inferior cerebrum as well. 2. 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 The vein of Jarred and straight sinus are engorged pote ntially reflecting primary venous drainage of this AVM with increased density at the region of the vermis suggesting increase in volume of the posterior portion of the AVM. -CTA of the brain 08/03: 1. 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 AVM is more prominent in the interval with prominent vein of Jarred/straight sinus venous drainage and left frontal cortical venous drainage. Limited right temporal cortical venous drainage identified. 2. 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 3. No definite occlusion or even significant stenosis identified within main intracranial arteries, however, bilateral vertebral arteries appears relatively prominent as well as right posterior communicating artery, likely related to arteriovascular malformation. 4. Widely patent bilateral common and internal carotid arteries at the neck and skull base. Code stroke -Interventions as above, including relevant imaging (code stroke CT head, CTA, CXR) -NIH score 2 from chronic symptoms -Patient examined stat and is deemed NOT to be having an acute stroke. Safe for discharge once pain adequately controlled, with need for neurosurgical follow up
[2018-08-03 15:50] VITALS: BP 118/71; PULSE 61; RESP 16; O2SAT 96
--- NOTE | 2018-08-08 23:47 | CARD ---
APPROVED REPORT Date of service: 08/03/2018 EKG Measurement Heart [id number] <Conclusion> Normal sinus rhythm Septal infarct, age undetermined Abnormal ECG
== END 2018-08-03 15:15 | disposition home or self-care (01) ==
LOC: C.ER 12:05
DX: R51 Headache (principal)
CPT/HCPCS: 70450; 70496; 70498; 71045; 80053; 80061; 80320; 82948; 83036; 84484; 85025; 85610; 85730; 86850; 86900; 93005; 96374; 96375; 99285; J1100; J1885; J2765; J3475; Q9967

== ENCOUNTER 2018-08-19 01:00 | Emergency (ER) | payer OTHER ==
[2018-08-19 01:01] VITALS: BMI 24.3
[2018-08-19 01:13] VITALS: RESP 20; O2SAT 98
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
[2018-08-19 03:37] VITALS: BP 128/68; PULSE 81; TEMP 97.2
--- NOTE | 2018-08-19 09:25 | CT ---
Date of service: 08/19/2018 PROCEDURE: CT HEAD WITHOUT CONTRAST. HISTORY: head trauma COMPARISON: 08/03/2018. TECHNIQUE: Axial computed tomography images were obtained through the head/brain without intravenous contrast. Radiation dose: Total exam DLP = 1022.68 mGy-cm. This CT exam was performed using one or more of the following dose reduction techniques: Automated exposure control, adjustment of the mA and/or kV according to patient size, and/or use of iterative reconstruction technique. FINDINGS: HEMORRHAGE: No intracranial hemorrhage. BRAIN: There is redemonstration of a large arteriovenous malformation involving the dorsal brainstem and vermis with primary drainage in the vein of Jarred, straight sinus and right transverse sinus. Also noted is an engorged and normal is left frontal cortical vein. Again seen are postsurgical changes and extensive streak artifacts from coils in the superior part of the malformation. VENTRICLES: There is stable position of a left transfrontal shunt catheter terminating in the midline. There is near complete effacement of the ventricles. The basilar cisterns are patent. CALVARIUM: There is no calvarial fracture or extracranial soft tissue swelling. Status post right frontal raysa hole. PARANASAL SINUSES: Predominantly clear. MASTOID AIR CELLS: Predominantly clear. OTHER FINDINGS: None. IMPRESSION: 1. No acute intracranial abnormality. 2. Redemonstration of a large arteriovenous malformation involving the dorsal brainstem and vermis with primary drainage in vein of Jarred, straight sinus and right transverse sinus. 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 3. Left transfrontal shunt catheter terminates in the midline. Near complete effacement of the ventricles. A preliminary report was provided by [facility].
== END 2018-08-19 03:37 | disposition home or self-care (01) ==
LOC: C.ER 01:00
DX: S09.90XA Unspecified injury of head, initial encounter (principal); Y04.0XXA Assault by unarmed brawl or fight, initial encounter; Y92.009 Unspecified place in unspecified non-institutional (private) residence as the place of occurrence of the external cause

== ENCOUNTER 2018-09-06 07:29 | Emergency (ER) | payer OTHER ==
[2018-09-06 07:30] VITALS: BMI 24.3
[2018-09-06 07:43] VITALS: TEMP 97.7
--- NOTE | 2018-09-06 09:17 | RAD ---
Date of service: 09/06/2018 PROCEDURE: HISTORY: headache COMPARISON: CT head 08/19/2017 TECHNIQUE: Five images FINDINGS: The spacing of the shunt catheter tubing-the radiolucent segment over the calvarium is as before. No interruption of the shunt is seen. Should catheter enters from the left frontal calvarium in courses along the left side of the neck-it projects over the left hemithorax and left abdomen with a small rightward convex loop at the L3-4 level. And a distal loop in the central to upper pelvis with its tip projecting of the left hemipelvis. Extensive inferred embolization coils project over the central intracranial anatomy superior and just posterior to the mandibular condyles the lateral skull view IMPRESSION: Left shunt catheter appears intact with course as referenced above. Other findings as above.
--- NOTE | 2018-09-06 10:07 | C.PDOC ---
History Of Present Illness 27 y/o male presents to the ER complaining of global headache which began yesterday. Patient rates the pain as 6-7/10 and took Advil once yesterday w/some relief. Patient denies taking any pain medication today. Patient denies sudden onset or thunderclap onset of headache or that this is the worst headache of his life. Patient states that he has history of brain aneurysm with coiling and shunt 9 years ago. Patient reports that he has had strabismus, slurred speech and difficulty ambulating since the brain aneurysm and denies any worsening of these symptoms. Patient denies visual changes, neck pain/stiffness, fever,chills, CP,SOB, nausea, vomiting, and abdominal pain. Time Seen by Provider: 09/06/18 07:38 Chief Complaint (Nursing): Headache History Per: Patient History/Exam Limitations: no limitations Onset/Duration Of Symptoms: Days Current Symptoms Are (Timing): Still Present Severity: Moderate Past Medical History Reviewed: Historical Data, Nursing Documentation, Vital Signs Vital Signs: Last Vital Signs Temp 97.7 F 09/06/18 07:30 Pulse 67 09/06/18 07:30 Resp 18 09/06/18 07:30 BP 130/56 L 09/06/18 07:30 Pulse Ox 96 09/06/18 07:30 - Medical History PMH: CVA, Seizures Denies: Diabetes, Hepatitis, HIV, HTN, Chronic Kidney Disease, Sexually Transmitted Disease Other Surgeries: Hx of surgeries - [facility] Procedures COLLECTION OF CSF FROM INDWELL DEV IN NERVOUS SYS (09/20/15) DRAINAGE OF CEREBRAL VENTRICLE WITH DRAIN DEV, PERC APPROACH (09/20/15) EXTIRPATION OF MATTER FROM RIGHT MAIN BRONCHUS, ENDO (09/20/15) INJECT/INFUSE NEC (03/05/15) INSERTION OF ENDOTRACHEAL AIRWAY INTO TRACHEA, VIA OPENING (09/20/15) RESPIRATORY VENTILATION, 24-96 CONSECUTIVE HOURS (09/20/15) Family History: States: No Known Family Hx - Social History Hx Tobacco Use: Yes Hx Alcohol Use: No Hx Substance Use: Yes - Immunization History Hx Tetanus Toxoid Vaccination: No Hx Influenza Vaccination: No Hx Pneumococcal Vaccination: No Review Of Systems Except As Marked, All Systems Reviewed And Found Negative. Constitutional: Negative for: Fever, Chills Cardiovascular: Negative for: Chest Pain Respiratory: Negative for: Shortness of Breath Gastrointestinal: Negative for: Nausea, Vomiting, Abdominal Pain, Diarrhea Neurological: Positive for: Headache Physical Exam - Physical Exam Appears: Well, Non-toxic, No Acute Distress Skin: Normal Color, Warm, Diaphoretic Head: Atraumatic, Normacephalic, Other (shunt depressible) Eye(s): bilateral: Other (strabismus) Nose: Normal Oral Mucosa: Moist Neck: Normal ROM, Supple Chest: Symmetrical Cardiovascular: Rhythm Regular Respiratory: Normal Breath Sounds, No Rales, No Rhonchi, No Wheezing Gastrointestinal/Abdominal: Normal Exam, Soft, No Tenderness, No Guarding, No Rebound Neurological/Psych: Oriented x3, No Normal Speech (slurred, at baseline per patient), Normal Sensation ED Course And Treatment ECG: Interpreted By Me, Viewed By Me ECG Rhythm: Sinus Rhythm Interpretation Of ECG: NSR with normal intervals, normal axises, and no ST elevations/depressions Rate From EC O2 Sat by Pulse Oximetry: 96 (RA) Pulse Ox Interpretation: Normal - CT Scan/US Shuntogram Other Rad Studies (CT/US): Read By Radiologist, Radiology Report Reviewed CT/US Interpretation: Date of service: 09/06/2018. PROCEDURE: HISTORY: headache. COMPARISON: CT head 08/19/2017. TECHNIQUE: Five images. FINDINGS: The spacing of the shunt catheter tubing-the radiolucent segment over the calvarium is as before. No interruption of the shunt is seen. Should catheter enters from the left frontal calvarium in courses along the left side of the neck-it projects over the left hemithorax and left abdomen with a small rightward convex loop at the L3-4 level. And a distal loop in the central to upper pelvis with its tip projecting of the left hemipelvis. Extensive inferred embolization coils project over the central intracranial anatomy superior and just posterior to the mandibular condyles the lateral skull view. IMPRESSION: Left shunt catheter appears intact with course as referenced above. Other findings as above. Medical Decision Making Medical Decision Making: Plan: --Tylenol PO --Motrin PO --Zofran PO --Shuntogram Updates: Case discussed with who is covering for Dr. Jewell. He advises for patient to be discharged and follow up with Dr. Jewell in his office tomorrow. Patient agreeable w/POC. Pt re-eval: Pt states feeling much better. Denies n/v, dizziness, or any other complaints. Understands and agrees to immediately return to the ER if ORELLANA, n/v, f/c, dizziness, weakness, blurry vision, neck pain, or any other concerning, worsening, new or continued symptoms. Otherwise states will f/u with pcp in 1-2 days. States will call today for appointment. Patient states feeling better and would like to go home. Patient is very well appearing and non-toxic. Vital signs are stable. I discussed the results of the work-up, diagnosis and treatment. Written discharge instructions were provided to patient. Additional verbal instructions were given and discussed with patient. We discussed the importance of follow up with PCP/consultants. I also reiterated reasons to immediately return to the ER including: worsening in current symptoms and/or new, continued, or concerning symptoms. Pt understood and agreed. Disposition Counseled Patient/Family Regarding: Studies Performed, Diagnosis, Need For Followup - Disposition Referrals: Steffen Jewell DO [[facility]] - Disposition: HOME/ ROUTINE Disposition Time: 10:05 Condition: IMPROVED Additional Instructions: VAHE MCKEE, thank you for letting us take care of you today. Your provider was Kati Brambila MD and you were treated for HEADACHE. The emergency medical care you received today was directed at your acute symptoms. If you were prescribed any medication, please fill it and take as directed. It may take several days for your symptoms to resolve. Return to the Emergency Department if your symp toms worsen, do not improve, or if you have any other problems. Please contact your doctor today for an appointment to be seen in the office tomorrow. Bring any paperwork you were given at discharge with you along with any medications you are taking to your follow up visit. Our treatment cannot replace ongoing medical care by a primary care provider outside of the emergency department. Thank you for allowing the [facility] team to be part of your care today. If you had an X-Ray or CT scan: A Radiologist will review the ED reading if any change in treatment is needed we will contact you. If you had a blood, urine, or wound culture: It will take several days for the results, if any change in treatment is needed we will contact you. If you had an STI test: It will take 48 hours for the results. Please call after 1 week if you have not heard back. Instructions: Headache, Adult (DC) Forms: [facility] (Khmer) - POA Present On Arrival: None - Clinical Impression Clinical Impression: Headache - Scribe Statement The provider has reviewed the documentation as recorded by the Scribe Kevin Blue Provider Attestation: All medical record entries made by the Scribe were at my direction and personally dictated by me. I have reviewed the chart and agree that the record accurately reflects my personal performance of the history, physical exam, medical decision making, and the department course for this patient. I have also personally directed, reviewed, and agree with the discharge instructions and disposition.
[2018-09-06 11:29] VITALS: BP 126/75; PULSE 70; RESP 17
[2018-09-06 18:23] VITALS: O2SAT 96
== END 2018-09-06 11:29 | disposition home or self-care (01) ==
LOC: C.ER 07:29
DX: R51 Headache (principal); Z86.73 Personal history of transient ischemic attack (TIA), and cerebral infarction without residual deficits; Z72.0 Tobacco use

== ENCOUNTER 2018-10-14 13:32 | Emergency (ER) | payer OTHER ==
[2018-10-14 13:32] VITALS: BMI 24.3
[2018-10-14 14:33] VITALS: BP 132/80; PULSE 63; RESP 16; TEMP 98.5; O2SAT 99
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
== END 2018-10-14 15:22 | disposition home or self-care (01) ==
LOC: C.ER 13:32
DX: S61.210A Laceration without foreign body of right index finger without damage to nail, initial encounter (principal); T14.8XXA Other injury of unspecified body region, initial encounter; V18.0XXA Pedal cycle driver injured in noncollision transport accident in nontraffic accident, initial encounter